=== PATIENT | female | born 1955 | race African-American/Black ===

== ENCOUNTER 2019-06-08 09:24 | Emergency (ER) | payer BC, OTHER ==
--- NOTE | 2019-06-08 11:46 | ED ---
Lower Extremity - HPI Summary HPI Summary: Patient is a 63-year-old female who presents emergency department for knee pain 2 weeks. Patient does not recall any specific injuries or falls. Patient states she put heat on her knee last night and then noticed it was swollen this morning. Pain with walking and bending. Patient denies associated symptoms of fever, redness, wounds. She does note intermittent pain to her posterior leg into her calf. History of diabetes, obesity, hypertension. Symptoms are mild in severity. - History of Current Complaint Chief Complaint: EDExtremityLower Stated Complaint: LEFT LEG SWELLING PER PT Time Seen by Provider: 06/08/19 11:33 Hx Obtained From: Patient Pain Intensity: 10 - Allergies/Home Medications Allergies/Adverse Reactions: Allergies Allergy/AdvReac Type Severity Reaction Status Date / Time No Known Allergies Allergy Verified 06/08/19 09:38 PMH/Surg Hx/FS Hx/Imm Hx Previously Healthy: Yes Endocrine/Hematology History: Reports: Hx Diabetes Denies: Hx Thyroid Disease Cardiovascular History: Denies: Hx Hypertension, Hx Pacemaker/ICD Respiratory History: Denies: Hx Asthma, Hx Chronic Obstructive Pulmonary Disease (COPD) GI History: Reports: Other GI Disorders - Gastric Bypass surgery 1988 Denies: Hx Ulcer History: Denies: Hx Renal Disease Musculoskeletal History: Reports: Hx Back Problems - low back pain Sensory History: Reports: Hx Contacts or Glasses Denies: Hx Hearing Aid Opthamlomology History: Reports: Hx Contacts or Glasses Psychiatric History: Denies: Hx Panic Disorder - Surgical History Surgery Procedure, Year, and Place: Gastric Bypass surgery 1988 Hx Anesthesia Reactions: No Infectious Disease History: No Infectious Disease History: Denies: Hx Hepatitis, Hx Human Immunodeficiency Virus (HIV), Traveled Outside the [place] in Last 30 Days - Family History Known Family History: Positive: Non-Contributory - Social History Occupation: Retired Lives: With Family Substance Use Type: Reports: None Review of Systems Constitutional: Negative Negative: Fever Cardiovascular: Negative Respiratory: Negative Positive: Other - Left knee swelling and pain Skin: Negative Neurological: Negative Negative: Weakness, Paresthesia, Numbness All Other Systems Reviewed And Are Negative: Yes Physical Exam Triage Information Reviewed: Yes Vital Signs On Initial Exam: Initial Vitals Temp Pulse Resp BP Pulse Ox 97.8 F 66 16 167/88 100 06/08/19 09:35 06/08/19 09:35 06/08/19 09:35 06/08/19 09:35 06/08/19 09:35 Vital Signs Reviewed: Yes Appearance: Positive: Well-Appearing - Patient lying in bed in no acute distress. Pleasant. Family member present. Skin: Positive: Warm, Dry Head/Face: Positive: Normal Head/Face Inspection Eyes: Positive: Normal, EOMI Neck: Positive: Supple Musculoskeletal: Positive: Other - Effusion noted medially to left knee. There is no overlying erythema or increased warmth. Mild tenderness to the posterior leg into ankle. Good pedal pulse. Flexion decreased secondary to edema. No significant pain passive with range of motion. Neurological: Positive: Normal, CN Intact II-III Psychiatric: Positive: Affect/Mood Appropriate Procedures - Sedation Patient Received Moderate/Deep Sedation with Procedure: No Diagnostics - Vital Signs Vital Signs Temp Pulse Resp BP Pulse Ox 06/08/19 09:35 97.8 F 66 16 167/88 100 - Laboratory Lab Statement: Any lab studies that have been ordered have been reviewed, and results considered in the medical decision making process. Lower Extremity Course/Dx - Course Course Of Treatment: Patient with fusion to left knee. She is afebrile. There are no signs of infection. She does have some tenderness to posterior leg. We' ll obtain ultrasound oral DVT as well as x-ray. DVT ultrasound negative. Xray per radiology: IMPRESSION: 1. SMALL EFFUSION. 2. NO FRACTURE IDENTIFIED. 3. MODERATE OSTEOARTHROPATHY OF THE MEDIAL TIBIOFEMORAL COMPARTMENT. Suspect symptoms are secondary to arthritis. Mars wrap was placed for compression. Advised patient to ice and elevate intermittently. Tylenol or Motrin for pain as directed. We'll have her follow up with orthopedics for further treatment if symptoms persist. Patient will return if symptoms change or worsen. Patient understands and agrees with plan. - Diagnoses Differential Diagnosis/HQI/PQRI: Positive: Bursitis, Contusion, DVT, Fracture ( Closed), Gout, Infection, Sprain, Strain, Tendonitis Provider Diagnoses: Knee effusion, Osteoarthritis Discharge ED - Sign-Out/Discharge Documenting (check all that apply): Patient Departure - Discharge Plan Condition: Good Disposition: HOME Patient Education Materials: Osteoarthritis (ED), Swollen Knee Joint (ED) Referrals: Kwame Chavez MD [Medical Doctor] - Additional Instructions: Schedule a follow up appointment with orthopedics if symptoms persist Acewrap to knee Tylenol or Motrin for pain as directed Ice and elevated Return to ER if symptoms change or worsen - Billing Disposition and Condition Condition: GOOD Disposition: Home
[2019-06-08 14:19] VITALS: BP 164/85
== END 2019-06-08 14:10 | disposition home or self-care (01) ==
LOC: ED 09:24
DX: M25.462 Effusion, left knee (principal); M17.12 Unilateral primary osteoarthritis, left knee; M79.605 Pain in left leg; E11.9 Type 2 diabetes mellitus without complications; Z98.84 Bariatric surgery status
CPT/HCPCS: 99282